=== PATIENT | male | born 1935 | race Caucasian/White ===

== ENCOUNTER 2020-07-18 18:45 | Inpatient (IN) | payer MEDICARE, BC ==
[~2020-07-18] VITALS: Ht 177.8 cm; Wt 97.5 kg
--- NOTE | 2020-07-18 19:01 | NUR ---
Triage done based on Pt's recall, No Hx or Med list received from Board and care/paramedics.
--- NOTE | 2020-07-18 19:12 | NUR ---
Received report from Fidelina MCKEON. Unable to determine pt's board and care and medication list/PMH. Pt alert, oriented to self only, and verbally responsive. Able to verbalize needs but very forgetful.
[2020-07-18 19:44] LABS: BASOPHILS % (AUTO) 0.2 % (0.0-2.0); HEMATOCRIT 25.9 % (36.7-47.1); HEMOGLOBIN 8.4 g/dL (12.5-16.3); LYMPHOCYTES # (AUTO) 2.5 K/uL (20.0-40.0); LYMPHOCYTES % (AUTO) 10.6 % (20.5-51.5); MEAN CORPUSCULAR HEMOGLOBIN 28.7 uug (23.8-33.4); MEAN CORPUSCULAR HGB CONC 32 g/dL (32.5-36.3); MEAN CORPUSCULAR VOLUME 88.9 fL (73.0-96.2); MONOCYTES # (AUTO) 1.5 K/uL (2.0-10.0); MONOCYTES % (AUTO) 6.7 % (0.0-11.0); NEUTROPHILS # (AUTO) 19.2 K/uL (1.8-8.9); NEUTROPHILS % (AUTO) 82.5 % (38.5-71.5); PLATELET COUNT (AUTO) 336 K/uL (152-348); RED BLOOD CELL COUNT(AUTO) 2.92 MIL/uL (4.06-5.63); WHITE BLOOD COUNT (AUTO) 23.2 K/uL (3.6-10.2)
[2020-07-18 20:06] LABS: BILIRUBIN,DIRECT 0.3 mg/dL (0.0-0.2); BILIRUBIN,TOTAL 0.8 mg/dL (0.2-1.0); CREATININE 1.3 mg/dL (0.6-1.3); POTASSIUM 5.2 mmol/L (3.5-5.1)
[2020-07-18] MEDS ORDERED: METOCLOPRAMIDE HCL 10 MG/2 ML VIAL IV ONE (20:15)
[2020-07-18] MEDS ORDERED: PIPERACILLIN SODIUM/TAZOBACTAM 3.375 G in IV DEXTROSE 5% 50 ML IV ONE (20:30)
[2020-07-18] MEDS ORDERED: IV NS 1000 ML 1,000 ML IV ONE ×2 (20:30→21:45)
[2020-07-18] MEDS ORDERED: METRONIDAZOLE 500 MG/NS 100 ML PIGGYBACK IV ONE (20:30)
[2020-07-18] MEDS ORDERED: VANCOMYCIN 1G/D5W 200 ML PIGGYBACK IV ONE (20:30)
[2020-07-18] MEDS ORDERED: METOCLOPRAMIDE HCL 10 MG/2 ML VIAL ONE (20:40)
[2020-07-18] MEDS ORDERED: PIPERACILLIN/TAZOBACTAM/D5W 50 ML IV ONE (20:42)
--- NOTE | 2020-07-18 20:50 | NUR ---
Called for bed. CN will call me back.
[2020-07-18] MEDS ORDERED: CHOL100045 PO (21:11)
[2020-07-18] MEDS ORDERED: PRAZ2CAP2 PO (21:11)
[2020-07-18] MEDS ORDERED: NALO4SPR NS (21:11)
[2020-07-18] MEDS ORDERED: MEMA10TA56 PO (21:11)
[2020-07-18] MEDS ORDERED: LIDO30AD10 TD (21:11)
[2020-07-18] MEDS ORDERED: VIT1CAPS44 PO (21:11)
[2020-07-18] MEDS ORDERED: POLY15DR17 OP (21:11)
[2020-07-18] MEDS ORDERED: DICLOFENAC 1% (21:11)
[2020-07-18] MEDS ORDERED: DONE10TA44 PO (21:11)
[2020-07-18] MEDS ORDERED: ATOR10TA33 PO (21:11)
[2020-07-18] MEDS ORDERED: ONDA4TAB5 PO (21:11)
[2020-07-18] MEDS ORDERED: [UNRECOGNIZED DRUG - OTHER] (21:11)
[2020-07-18] MEDS ORDERED: SENN8.6T22 PO (21:11)
[2020-07-18] MEDS ORDERED: GABA100C PO (21:11)
[2020-07-18] MEDS ORDERED: ACET-2154 PO (21:11)
[2020-07-18] MEDS ORDERED: APIX5TAB PO (21:11)
[2020-07-18] MEDS ORDERED: POLY17PO4 PO (21:11)
[2020-07-18] MEDS ORDERED: FINA5TAB11 PO (21:11)
[2020-07-18] MEDS ORDERED: TRAZ-182 PO (21:11)
[2020-07-18] MEDS ORDERED: DEXA2TAB PO (21:11)
[2020-07-18] MEDS ORDERED: METO-356 PO (21:11)
[2020-07-18] MEDS ORDERED: TIMO5DRO35 OP (21:11)
[2020-07-18] MEDS ORDERED: OXYC5TAB3 PO (21:11)
[2020-07-18] MEDS ORDERED: TRAZODONE 50 MG TABLET PO SCH (21:45)
[2020-07-18] MEDS ORDERED: OXYCODONE HCL 5 MG TABLET PO PRN (21:45)
[2020-07-18] MEDS ORDERED: ACETAMINOPHEN 325 MG TABLET PO PRN (21:45)
[2020-07-18 21:47] LABS: *BILIRUBIN,URIN NEGATIVE (NEGATIVE); *BLOOD, URINE NEGATIVE (NEGATIVE); *CLARITY,URINE CLEAR (CLEAR); *COLOR,URINE AMBER (YELLOW); *KETONES,URINE NEGATIVE (NEGATIVE); *UROBILINOGEN,URINE 0.2 E.U./dl (NORMAL); LEUKOCYTE ESTERASE ,URINE NEGATIVE (NEGATIVE); NITRITE, URINE NEGATIVE (NEGATIVE); UGLUCOSE NEGATIVE (NEGATIVE)
--- NOTE | 2020-07-18 21:50 | NUR ---
Dr. Rose in panel call with Dr. Daly; accepted patient for Tele admission. Belongings list completed. Sepsis reassessment done. IV ATB is running at this time.
[2020-07-18] MEDS ORDERED: MORPHINE SULFATE 2 MG/1 ML DISP.SYRIN IV PRN (22:00)
[2020-07-18] MEDS ORDERED: PIPERACILLIN SODIUM/TAZOBACTAM 3.375 G in IV DEXTROSE 5% 50 ML IV SCH (22:00)
[2020-07-18] MEDS ORDERED: ONDANSETRON 4 MG/2 ML VIAL IV PRN (22:00)
--- NOTE | 2020-07-19 | NUR ---
Gave report to Nilay MCKEON. Patient rolled over. Jethro RN will transport patient to 3rd floor. Pt remains AO x 4. Recent VS stable as recorded. Not in any acute distress. Afebrile. All belongings with patient.
[2020-07-19 01:00] VITALS: BP 134/70
--- NOTE | 2020-07-19 01:00 | NUR ---
Pt was transported by MIKE Morelos via [facility]. Patient came here d/t N/Vx2 and SOBx1 week. Pt denies any acute distress or pain at this time. Denies N/V/abdominal pain. V/S stable on room air. IV on RAC18 is intact. Loomis catheter, draining clear, eduard urine. Pt noted to have redness and abrasion on the left side buttocks, and incision and swelling on the R. leg from a recent surgical procedure. Safety measures in place. Bed low and locked in position. Call light within reach. Will continue with the plan of care.
[2020-07-19 03:35] LABS: BAND % (MANUAL) 4 % (0-10); LYMPHOCYTES % (MANUAL) 10 % (20-40); METAMYELOCYTES % 2 % (0-1); MONOCYTES % (MANUAL) 7 % (2-10); NEUTROPHILS % (MANUAL) 77 % (42-75)
[2020-07-19 04:00] VITALS: BP 132/61
[2020-07-19] MEDS: IV 1/2NS 1000 ML 1,000 ML IV PRN ×2 (04:32→21:27)
[2020-07-19] MEDS ORDERED: PIPERACILLIN SODIUM/TAZOBACTAM 3.375 G in IV DEXTROSE 5% 50 ML IV SCH (06:00)
--- NOTE | 2020-07-19 06:30 | NUR ---
0600 Medication was not yet given, Pharmacy needs to evaluate. Called the pharmacy to follow up and they are currently reviewing it. Will endorse to oncoming nurse.
--- NOTE | 2020-07-19 06:31 | NUR ---
Pt slept intermittently through the night. Pt awake and denies any acute distress or pain at this time. Pt had no episode of N/V/Abd pain on my shift. V/S stable on room air. Afebrile. NSR 70 on tele monitor. IV on RAC 18 is intact with 0.45NS running at 60cc. Loomis intact and draining well. Comfort care and needs attended. Repositioned for comfort. Fall precaution maintained. Safety measures in place. Bed low and locked in position. Call light within reach. Will endorse to the oncoming nurse accordingly.
[2020-07-19] MEDS ORDERED: SWABABLE VALVE TRANSFER SET EA MC ONE (07:22)
[2020-07-19] MEDS ORDERED: IV NORMAL SALINE 250 ML IV ONE (07:22)
[2020-07-19] MEDS ORDERED: IOHEXOL 300MG/ML 100 ML INFUS..BTL ONE (07:22)
--- NOTE | 2020-07-19 07:30 | NUR ---
Received pt. aaox3-4. iv line present and intact, vitals stable will continue with care plan. Addendum: 07/19/20 at 1814 by ELEAZAR BATISTA RN Loomis catheter in place with dark eduard output noted.
[2020-07-19 07:45] LABS: BASOPHILS # (AUTO) 0.1 K/uL (0.0-8.0); EOSINOPHILS % (AUTO) 0.1 % (0.0-7.0); MONOCYTES # (AUTO) 1.9 K/uL (2.0-10.0); NEUTROPHILS # (AUTO) 13.5 K/uL (1.8-8.9)
[2020-07-19 07:46] LABS: BASOPHILS % (AUTO) 0.3 % (0.0-2.0); LYMPHOCYTES # (AUTO) 3.4 K/uL (20.0-40.0); LYMPHOCYTES % (AUTO) 18.1 % (20.5-51.5); MEAN CORPUSCULAR HEMOGLOBIN 29.9 uug (23.8-33.4); MEAN CORPUSCULAR HGB CONC 34 g/dL (32.5-36.3); MEAN CORPUSCULAR VOLUME 88.2 fL (73.0-96.2); MONOCYTES % (AUTO) 9.9 % (0.0-11.0); NEUTROPHILS % (AUTO) 71.6 % (38.5-71.5); PLATELET COUNT (AUTO) 278 K/uL (152-348); WHITE BLOOD COUNT (AUTO) 18.9 K/uL (3.6-10.2)
[2020-07-19 07:50] LABS: HEMATOCRIT 18.9 % (36.7-47.1); HEMOGLOBIN 6.4 g/dL (12.5-16.3); RED BLOOD CELL COUNT(AUTO) 2.14 MIL/uL (4.06-5.63)
[2020-07-19 08:06] LABS: BILIRUBIN,TOTAL 0.9 mg/dL (0.2-1.0); MAGNESIUM 2.2 mg/dL (1.8-2.4); PHOSPHOROUS 3.5 mg/dL (2.5-4.9); POTASSIUM 4.4 mmol/L (3.5-5.1); TOTAL PROTEIN, SERUM 5.1 g/dL (6.4-8.2)
[2020-07-19] MEDS: FINASTERIDE 5 MG TABLET PO SCH (08:33)
[2020-07-19] MEDS: MEMANTINE HCL 10 MG TABLET PO SCH ×2 (08:33→16:46)
[2020-07-19] MEDS: PANTOPRAZOLE SODIUM 40 MG TABLET.DR PO SCH (08:34)
[2020-07-19] MEDS: POLYVINYL ALCOHOL OPHT DROPS 15 ML BOTTLE OP SCH ×2 (08:40→16:53)
[2020-07-19] MEDS: TIMOLOL MALEATE 0.5% OPHT DROP 5 ML BOTTLE OP SCH ×2 (08:40→16:53)
[2020-07-19] MEDS: LIDOCAINE 5% PATCH TD SCH (08:41)
[2020-07-19 08:56] LABS: HEMATOCRIT 19.9 % (36.7-47.1)
[2020-07-19 08:58] LABS: HEMOGLOBIN 6.5 g/dL (12.5-16.3)
[2020-07-19] MEDS ORDERED: DEXAMETHASONE 2 MG TABLET PO SCH (09:00)
[2020-07-19] MEDS: DEXAMETHASONE 1 MG TABLET PO SCH (09:05)
[2020-07-19] MEDS: PIPERACILLIN SODIUM/TAZOBACTAM 3.375 G in IV DEXTROSE 5% 100 ML IV SCH ×2 (09:05→16:47)
[2020-07-19] MEDS ORDERED: diphenhydrAMINE 50 MG CAPSULE PO ONE (11:00)
[2020-07-19] MEDS ORDERED: ACETAMINOPHEN ES 500 MG TABLET PO ONE (11:00)
[2020-07-19 12:00] VITALS: BP 123/46
[2020-07-19] MEDS: SOD FERRIC GLUC COMPLX/SUCROSE 125 MG in IV NORMAL SALINE 100 ML IV SCH (13:54)
[2020-07-19] MEDS ORDERED: VANCOMYCIN IV 1,250 MG in IV DEXTROSE 5% 250 ML IV SCH (14:00)
[2020-07-19 14:19] LABS: LYMPHOCYTES % (MANUAL) 12 % (20-40); MONOCYTES % (MANUAL) 5 % (2-10); NEUTROPHILS % (MANUAL) 83 % (42-75)
[2020-07-19] MEDS ORDERED: Z GUARD REMEDY PASTE 57 GM TUBE TOP PRN (15:30)
[2020-07-19 16:00] VITALS: BP 119/49
--- NOTE | 2020-07-19 18:06 | NUR ---
Attempts to obtain consent for blood transfusion pt. refusing to consent at this time. Attending notified and per recommendation pt's daughter Sanam Ashraf call at and informed of the need for consent at this time she also declined to consent verbalizing "my dad is coherent enough to consent for procedure I'll gladly consent after the gives me a call with an update"'. Attending notified.
--- NOTE | 2020-07-19 19:00 | NUR ---
Pt in bed, awake. No s/s of acute distress noted. V/S stable on room air. NSR 84 on tele monitor. Pt's hemoglobin is 6.5. Will follow up with the daughter's consent for blood transfusion. IV on RFA intact with 0.45NS at 60cc. Loomis is intact and draining cloudy eduard urine. Safety measures in place. Call light within reach. Will continue with the plan of care.
[2020-07-19 20:51] VITALS: BP 104/47
[2020-07-19] MEDS: ATORVASTATIN 10 MG TABLET PO SCH (20:53)
[2020-07-19] MEDS: DONEPEZIL 10 MG TABLET PO SCH (20:53)
[2020-07-19] MEDS: GABAPENTIN 100 MG CAPSULE PO SCH (20:53)
[2020-07-19] MEDS: PRAZOSIN HCL 1 MG CAPSULE PO SCH (20:58)
[2020-07-20] VITALS (18 sets, daily range): BP systolic 95–121; BP diastolic 40–63
--- NOTE | 2020-07-20 01:13 | NUR ---
Pt on blood transfusion. V/S stable. Will continue to monitor
--- NOTE | 2020-07-20 03:55 | NUR ---
Blood transfusion done. Pt tolerated well. V/S WNL.
[2020-07-20] MEDS: PIPERACILLIN SODIUM/TAZOBACTAM 3.375 G in IV DEXTROSE 5% 100 ML IV SCH ×3 (04:02→20:02)
--- NOTE | 2020-07-20 06:42 | NUR ---
Pt slept intermittently through the night. Pt awake and denies any acute distress or pain at this time. V/S stable on room air. Afebrile. NSR 76 on tele monitor. Fall precaution maintained. Loomis intact and draining well. IV intact with 0.45% NS at 60cc. Repositioned for comfort. Safety measures in place. Call light within reach. Will endorse to the oncoming nurse accordingly.
[2020-07-20] MEDS: PANTOPRAZOLE SODIUM 40 MG TABLET.DR PO SCH ×2 (07:14→16:11)
[2020-07-20 07:23] LABS: BASOPHILS % (AUTO) 0.3 % (0.0-2.0); EOSINOPHILS # (AUTO) 0.1 K/uL (0.0-0.7); EOSINOPHILS % (AUTO) 0.7 % (0.0-7.0); LYMPHOCYTES % (AUTO) 23.7 % (20.5-51.5); MEAN CORPUSCULAR HEMOGLOBIN 29.9 uug (23.8-33.4); MEAN CORPUSCULAR HGB CONC 34 g/dL (32.5-36.3); MEAN CORPUSCULAR VOLUME 88.2 fL (73.0-96.2); MONOCYTES # (AUTO) 1.1 K/uL (2.0-10.0); MONOCYTES % (AUTO) 8.6 % (0.0-11.0); NEUTROPHILS # (AUTO) 8.5 K/uL (1.8-8.9); NEUTROPHILS % (AUTO) 66.7 % (38.5-71.5); PLATELET COUNT (AUTO) 232 K/uL (152-348); WHITE BLOOD COUNT (AUTO) 12.7 K/uL (3.6-10.2)
[2020-07-20 07:33] LABS: RED BLOOD CELL COUNT(AUTO) 1.94 MIL/uL (4.06-5.63)
[2020-07-20 07:39] LABS: HEMATOCRIT 17.1 % (36.7-47.1); HEMOGLOBIN 5.8 g/dL (12.5-16.3)
--- NOTE | 2020-07-20 08:00 | NUR ---
received awake alert and oriented, hard of hearing, explained plan of care- verbalized understanding, to get a unit of PRBC, COMPRESSION MOLDING MACHINE SETTER informed earlier of h/h (5.8)/ (17.1) with orders, still no BM for OB, tele SR/SB with paced beats, safety measures maintained, call light within reach
[2020-07-20 08:09] LABS: CREATININE 0.9 mg/dL (0.6-1.3); POTASSIUM 4.1 mmol/L (3.5-5.1); VANCOMYCIN,TROUGH 6.2 ug/mL (12.0-20.0)
[2020-07-20] MEDS: DEXAMETHASONE 1 MG TABLET PO SCH (08:41)
[2020-07-20] MEDS: VANCOMYCIN IV 1,500 MG in IV DEXTROSE 5% 500 ML IV SCH (08:41)
[2020-07-20] MEDS: TIMOLOL MALEATE 0.5% OPHT DROP 5 ML BOTTLE OP SCH ×2 (08:42→16:14)
[2020-07-20] MEDS: POLYVINYL ALCOHOL OPHT DROPS 15 ML BOTTLE OP SCH ×2 (08:43→16:11)
[2020-07-20] MEDS: FINASTERIDE 5 MG TABLET PO SCH (08:43)
[2020-07-20] MEDS: MEMANTINE HCL 10 MG TABLET PO SCH ×2 (08:43→16:11)
[2020-07-20] MEDS: LIDOCAINE 5% PATCH TD SCH (08:43)
--- NOTE | 2020-07-20 12:07 | NUR ---
unit of PRBC started- vs stable- will monitor for s/s of blood transfusion reaction
--- NOTE | 2020-07-20 12:55 | NUR ---
blood transfusion infusing well without any reactions. no rashes, vs stable
--- NOTE | 2020-07-20 13:00 | NUR ---
Received report from Johnny MCKEON.
[2020-07-20] MEDS: SOD FERRIC GLUC COMPLX/SUCROSE 125 MG in IV NORMAL SALINE 100 ML IV SCH (15:13)
--- NOTE | 2020-07-20 15:20 | NUR ---
Blood transfusion completed, No ASE noted. Afebrile. No Nausea/vomiting Noted.
[2020-07-20 16:53] LABS: HEMOGLOBIN 7.3 g/dL (12.5-16.3)
--- NOTE | 2020-07-20 17:00 | NUR ---
Hgb of 7.3, Ronak FEDERAL APPELLATE LAW CLERK made aware.
--- NOTE | 2020-07-20 17:24 | NUR ---
Called Dr. Torres's Office for physicians consult, Re: Right thigh hematoma, spoke with Samantha, awaiting for call back.
--- NOTE | 2020-07-20 18:11 | NUR ---
Patient in bed, awake, alert and verbally responsive. Able to make needs known. No signs of distress noted. No SOB. No complain of Pain or discomfort. 1 PRBC given as ordered for hgb of 5.8. No ASE noted. Afebrile. current hgb of 7.3, PROJECT ANALYST Ronak made aware. Called Dr. Torres's Office of Consult, re: Right thigh hematoma, awaiting for call back. kept clean and comfortable. Will endorse to Oncoming Nurse.
[2020-07-20] MEDS: GABAPENTIN 100 MG CAPSULE PO SCH (20:02)
[2020-07-20] MEDS: DONEPEZIL 10 MG TABLET PO SCH (20:02)
[2020-07-20] MEDS: ATORVASTATIN 10 MG TABLET PO SCH (20:02)
[2020-07-20] MEDS: PRAZOSIN HCL 1 MG CAPSULE PO SCH (20:07)
[2020-07-21 00:42] VITALS: BP 100/53
[2020-07-21] MEDS: VANCOMYCIN IV 1,500 MG in IV DEXTROSE 5% 500 ML IV SCH ×2 (02:05→21:43)
[2020-07-21] MEDS: PIPERACILLIN SODIUM/TAZOBACTAM 3.375 G in IV DEXTROSE 5% 100 ML IV SCH ×3 (03:59→20:28)
[2020-07-21] MEDS: IV 1/2NS 1000 ML 1,000 ML IV PRN (04:02)
[2020-07-21 05:27] VITALS: BP 118/53
[2020-07-21] MEDS: PANTOPRAZOLE SODIUM 40 MG TABLET.DR PO SCH ×2 (06:18→17:13)
[2020-07-21] MEDS ORDERED: TRAZODONE 50 MG TABLET PO PRN (06:30)
--- NOTE | 2020-07-21 06:52 | NUR ---
Pt rested well in between care; assisted with hygiene needs; repositioned for comfort; applied mepilex to sacrum; air mattress in place; continue to monitor; continue plan of care.
[2020-07-21 07:02] LABS: BILIRUBIN,TOTAL 1.4 mg/dL (0.2-1.0); CREATININE 0.9 mg/dL (0.6-1.3); POTASSIUM 3.8 mmol/L (3.5-5.1); TOTAL PROTEIN, SERUM 5.1 g/dL (6.4-8.2)
[2020-07-21 07:19] LABS: BASOPHILS # (AUTO) 0.1 K/uL (0.0-8.0); BASOPHILS % (AUTO) 0.9 % (0.0-2.0); EOSINOPHILS # (AUTO) 0.1 K/uL (0.0-0.7); EOSINOPHILS % (AUTO) 0.9 % (0.0-7.0); HEMATOCRIT 23.5 % (36.7-47.1); HEMOGLOBIN 7.8 g/dL (12.5-16.3); LYMPHOCYTES % (AUTO) 19.9 % (20.5-51.5); MEAN CORPUSCULAR HEMOGLOBIN 30.2 uug (23.8-33.4); MEAN CORPUSCULAR HGB CONC 33 g/dL (32.5-36.3); MEAN CORPUSCULAR VOLUME 90.6 fL (73.0-96.2); MONOCYTES # (AUTO) 1.3 K/uL (2.0-10.0); MONOCYTES % (AUTO) 8.4 % (0.0-11.0); NEUTROPHILS # (AUTO) 10.6 K/uL (1.8-8.9); NEUTROPHILS % (AUTO) 69.9 % (38.5-71.5); PLATELET COUNT (AUTO) 222 K/uL (152-348); RED BLOOD CELL COUNT(AUTO) 2.59 MIL/uL (4.06-5.63); WHITE BLOOD COUNT (AUTO) 15.2 K/uL (3.6-10.2)
--- NOTE | 2020-07-21 07:30 | NUR ---
Received patient resting in bed. No distress noted at this time. Patient denies any pain at this time. Patient has difficulty hearing . He has a hematoma on the right left which is swollen, also he is on a air mattress to help prevent pressure injury. right buttock and sacral redness can be noted, will remove and cover with new mepilex. Two IV access right forearm and right AC 20 gauge, with the former running 1/2 NS at 60 mls/hr and the latter running abx. Safety precautions in place with bed in the lowest position and locked with call light and belongings within reach. Will continue to monitor.
[2020-07-21] MEDS: MEMANTINE HCL 10 MG TABLET PO SCH ×2 (09:15→17:13)
[2020-07-21] MEDS: FINASTERIDE 5 MG TABLET PO SCH (09:16)
[2020-07-21] MEDS: DEXAMETHASONE 1 MG TABLET PO SCH (09:16)
[2020-07-21] MEDS: TIMOLOL MALEATE 0.5% OPHT DROP 5 ML BOTTLE EACHEYE SCH ×2 (09:18→17:14)
[2020-07-21] MEDS: POLYVINYL ALCOHOL OPHT DROPS 15 ML BOTTLE EACHEYE SCH ×2 (09:18→17:14)
[2020-07-21] MEDS: LIDOCAINE 5% PATCH TD SCH ×2 (09:22→09:23)
[2020-07-21 11:22] VITALS: BP 99/43
--- NOTE | 2020-07-21 12:50 | NUR ---
Dr Torres in the room with the patient.
[2020-07-21 13:26] LABS: *OCCULT BLOOD STOOL NEGATIVE (NEGATIVE)
[2020-07-21] MEDS: SOD FERRIC GLUC COMPLX/SUCROSE 125 MG in IV NORMAL SALINE 100 ML IV SCH (14:06)
[2020-07-21 15:02] VITALS: BP 104/53
[2020-07-21 18:16] LABS: BAND % (MANUAL) 2 % (0-10); LYMPHOCYTES % (MANUAL) 32 % (20-40); MONOCYTES % (MANUAL) 9 % (2-10); NEUTROPHILS % (MANUAL) 57 % (42-75)
--- NOTE | 2020-07-21 18:56 | NUR ---
Informed consent is signed and in the patients chart for the incision and drainage of the right thigh hematoma. Procedure is schedules to be done on Wednesday the . Patient will be NPO after midnight. Will endorse to oncoming nurse.
--- NOTE | 2020-07-21 20:00 | NUR ---
Received patient in bed, alert and able to make needs known.No s/s of distress noted.Iv site in place on Right AC and Rt forearm 20 g.ABT IV given for sepsis .NO a/r noted.Compliant with medications.Call light with in reach.Will continue to monitor.
[2020-07-21] MEDS: DONEPEZIL 10 MG TABLET PO SCH (20:30)
[2020-07-21] MEDS: ATORVASTATIN 10 MG TABLET PO SCH (20:30)
[2020-07-21] MEDS: PRAZOSIN HCL 1 MG CAPSULE PO SCH (20:33)
[2020-07-21] MEDS: GABAPENTIN 100 MG CAPSULE PO SCH (20:33)
[2020-07-21 20:59] VITALS: BP 113/58
[2020-07-22] MEDS: IV 1/2NS 1000 ML 1,000 ML IV PRN (02:02)
[2020-07-22] MEDS: PIPERACILLIN SODIUM/TAZOBACTAM 3.375 G in IV DEXTROSE 5% 100 ML IV SCH ×3 (03:21→20:15)
[2020-07-22 05:49] VITALS: BP 144/60
--- NOTE | 2020-07-22 06:21 | NUR ---
Patient slept well .No s/s of distress .Denies pain. NPO after midnight.IV site remain intact.No s/s of infiltration.F/c draining well.Call light with in reach.Will endorse to oncoming shift.
[2020-07-22] MEDS: PANTOPRAZOLE SODIUM 40 MG TABLET.DR PO SCH ×2 (06:32→17:10)
[2020-07-22 07:11] LABS: BASOPHILS % (AUTO) 0.4 % (0.0-2.0); EOSINOPHILS # (AUTO) 0.2 K/uL (0.0-0.7); EOSINOPHILS % (AUTO) 1.5 % (0.0-7.0); HEMATOCRIT 24.5 % (36.7-47.1); HEMOGLOBIN 8.2 g/dL (12.5-16.3); LYMPHOCYTES # (AUTO) 2.8 K/uL (20.0-40.0); MEAN CORPUSCULAR HEMOGLOBIN 30.5 uug (23.8-33.4); MEAN CORPUSCULAR HGB CONC 33 g/dL (32.5-36.3); MEAN CORPUSCULAR VOLUME 91.3 fL (73.0-96.2); MONOCYTES # (AUTO) 0.9 K/uL (2.0-10.0); MONOCYTES % (AUTO) 7.7 % (0.0-11.0); NEUTROPHILS # (AUTO) 8.1 K/uL (1.8-8.9); NEUTROPHILS % (AUTO) 67.4 % (38.5-71.5); PLATELET COUNT (AUTO) 263 K/uL (152-348); RED BLOOD CELL COUNT(AUTO) 2.68 MIL/uL (4.06-5.63)
[2020-07-22 07:32] LABS: POTASSIUM 4.1 mmol/L (3.5-5.1)
[2020-07-22 08:00] VITALS: BP 113/54
[2020-07-22] MEDS: DEXAMETHASONE 1 MG TABLET PO SCH ×2 (09:00→09:46)
[2020-07-22] MEDS: TIMOLOL MALEATE 0.5% OPHT DROP 5 ML BOTTLE EACHEYE SCH ×3 (09:00→17:10)
[2020-07-22] MEDS: MEMANTINE HCL 10 MG TABLET PO SCH ×3 (09:00→17:10)
[2020-07-22] MEDS: POLYVINYL ALCOHOL OPHT DROPS 15 ML BOTTLE EACHEYE SCH ×3 (09:00→17:10)
[2020-07-22] MEDS: FINASTERIDE 5 MG TABLET PO SCH ×2 (09:00→09:47)
--- NOTE | 2020-07-22 09:07 | NUR ---
Talked to Bishnu Oquendo SCREEN PRINTING CLOTH SPREADER and held AM meds d/t pt NPO after midnight for possible I&D of right thigh
--- NOTE | 2020-07-22 09:22 | NUR ---
Dr. Torres called, informed that I&D will be done tomorrow morning. NPO after MN
[2020-07-22] MEDS: LIDOCAINE 5% PATCH TD SCH ×2 (09:47)
[2020-07-22 11:43] VITALS: BP 123/55
[2020-07-22] MEDS: SOD FERRIC GLUC COMPLX/SUCROSE 125 MG in IV NORMAL SALINE 100 ML IV SCH (13:51)
[2020-07-22] MEDS: VANCOMYCIN IV 1,500 MG in IV DEXTROSE 5% 500 ML IV SCH (15:45)
[2020-07-22 16:00] VITALS: BP 116/51
--- NOTE | 2020-07-22 18:27 | NUR ---
Pt stable throughout shift, AOx4 but forgetful. On RA denied SOB or distress at this time. Denied any chest pain. IV on right FA 20g flushed and patent. On air mattress. Spoke with daughter Sanam for I&D consent for tomorrow, cosigned with Maru EMMANUEL. Dr. Wells ordered for wound culture, will endorse to next shift. Loomis catheter in place draining clear yellow urine. No other complaints at this time. Bed locked in lowest position with siderails 2x up. Call light and phone within reach.
--- NOTE | 2020-07-22 20:00 | NUR ---
Patient in bed awake .HOB elevated.No respiratory distress noted.Continue on ATB therapy for sepsis.No A/r noted.Patient made aware of NPO after midnight.Verbalized understanding .Call light with in reach .Will continue to monitor.
[2020-07-22] MEDS: ATORVASTATIN 10 MG TABLET PO SCH (20:19)
[2020-07-22] MEDS: DONEPEZIL 10 MG TABLET PO SCH (20:19)
[2020-07-22] MEDS: GABAPENTIN 100 MG CAPSULE PO SCH (20:19)
[2020-07-22] MEDS: PRAZOSIN HCL 1 MG CAPSULE PO SCH (20:20)
[2020-07-22 20:27] VITALS: BP 111/57
[2020-07-23] MEDS: PIPERACILLIN SODIUM/TAZOBACTAM 3.375 G in IV DEXTROSE 5% 100 ML IV SCH ×3 (03:10→23:25)
[2020-07-23 05:46] VITALS: BP 128/64
--- NOTE | 2020-07-23 06:15 | NUR ---
Patient awake alert and able to make needs known.No s/s of distress noted.Continue on NPO .Rt leg and leg warm to touch .Denies pain.F/C fr [address] draining well with clear urine output ,no sediments.Left buttock redness.Provided wound care.Pt tolerated well.all needs anticipated and met accordingly.Will endorse to oncoming shift.
[2020-07-23] MEDS: PANTOPRAZOLE SODIUM 40 MG TABLET.DR PO SCH ×2 (06:25→16:58)
[2020-07-23 06:43] LABS: BASOPHILS % (AUTO) 0.3 % (0.0-2.0); EOSINOPHILS # (AUTO) 0.2 K/uL (0.0-0.7); EOSINOPHILS % (AUTO) 1.5 % (0.0-7.0); HEMATOCRIT 25.3 % (36.7-47.1); HEMOGLOBIN 8.5 g/dL (12.5-16.3); LYMPHOCYTES # (AUTO) 2.8 K/uL (20.0-40.0); LYMPHOCYTES % (AUTO) 20.1 % (20.5-51.5); MEAN CORPUSCULAR HEMOGLOBIN 30.8 uug (23.8-33.4); MEAN CORPUSCULAR HGB CONC 34 g/dL (32.5-36.3); MEAN CORPUSCULAR VOLUME 91.7 fL (73.0-96.2); MONOCYTES # (AUTO) 1.2 K/uL (2.0-10.0); MONOCYTES % (AUTO) 8.9 % (0.0-11.0); NEUTROPHILS # (AUTO) 9.7 K/uL (1.8-8.9); NEUTROPHILS % (AUTO) 69.2 % (38.5-71.5); PLATELET COUNT (AUTO) 267 K/uL (152-348); RED BLOOD CELL COUNT(AUTO) 2.76 MIL/uL (4.06-5.63)
[2020-07-23 06:45] LABS: CREATININE 0.9 mg/dL (0.6-1.3); POTASSIUM 3.8 mmol/L (3.5-5.1)
[2020-07-23] MEDS: POLYVINYL ALCOHOL OPHT DROPS 15 ML BOTTLE EACHEYE SCH ×2 (08:47→16:53)
[2020-07-23] MEDS: TIMOLOL MALEATE 0.5% OPHT DROP 5 ML BOTTLE EACHEYE SCH ×2 (08:48→16:54)
[2020-07-23] MEDS: LIDOCAINE 5% PATCH TD SCH ×2 (08:48)
[2020-07-23] MEDS: DEXAMETHASONE 1 MG TABLET PO SCH (09:00)
[2020-07-23] MEDS: MEMANTINE HCL 10 MG TABLET PO SCH ×2 (09:00→16:54)
[2020-07-23] MEDS: FINASTERIDE 5 MG TABLET PO SCH (09:00)
[2020-07-23] MEDS: VANCOMYCIN IV 1,500 MG in IV DEXTROSE 5% 500 ML IV SCH (11:38)
[2020-07-23 11:55] VITALS: BP 121/67
--- NOTE | 2020-07-23 12:50 | NUR ---
PATIENT TRANSPORTED BY OR STAFF FOR SCHEDULED PROCEDURE. ENDORSED WOUND CULTURE SWAB. PATIENT AWAKE, ALERT AND ORIENTED X 3-4, BUT FORGETFUL. ON RA, SATURATION WNL. IV ON R FA 20G - 0.45NS INFUSING PER MD ORDER. IV FLUSHING AND PATENT. NICHOLS CATHETER PATENT. EMPTIED CATHETER BAG - 350CC, YELLOW, NO ODOR. NO S/S OF SOB AND DISTRESS. NO COMPLAINTS OF PAIN AT THIS TIME.
[2020-07-23] MEDS ORDERED: FENTANYL CITRATE 100 MCG/2 ML AMPUL ONE (13:14)
[2020-07-23] MEDS ORDERED: POLYMYXIN B SULFATE 500,000 UNITS, BACITRACIN 50,000 UNITS, NORMAL SALINE 20 ML MC ONE ×3 (13:15)
[2020-07-23] MEDS ORDERED: DEXAMETHASONE SOD PHOSPHATE 4 MG INJ IV ONE (13:33)
[2020-07-23] MEDS ORDERED: PROPOFOL 200 MG/20 ML BOTTLE IV ONE (13:33)
[2020-07-23] MEDS ORDERED: SEVOFLURANE 250 ML BOTTLE IH ONE (13:33)
[2020-07-23] MEDS ORDERED: ONDANSETRON 4 MG/2 ML VIAL IV ONE (13:33)
[2020-07-23] MEDS ORDERED: IV NORMAL SALINE 1000 ML BAG IV ONE (13:33)
[2020-07-23] MEDS ORDERED: ETOMIDATE 20 MG/10 ML VIAL IV ONE (13:33)
[2020-07-23] MEDS ORDERED: GLYCOPYRROLATE 0.2 MG/ML VIAL IJ ONE (13:33)
[2020-07-23] MEDS ORDERED: NEOSTIGMINE METHYLSULFATE 10 MG/10 ML VIAL IM ONE (13:33)
[2020-07-23] MEDS ORDERED: MORPHINE SULFATE 4 MG/1 ML DISP.SYRIN IV PRN (14:30)
[2020-07-23] MEDS ORDERED: HYDROCODONE/APAP 10-325 MG TABLET PO PRN (14:30)
--- NOTE | 2020-07-23 14:40 | NUR ---
PATIENT RETURNED FROM PROCEDURE. AWAKE, ALERT AND ORIENTED. ON 2L NC, SATURATION WNL. VS WNL. PEDAL PULSE 2+, ABLE TO MOVE TOES AND FEEL SENSATION B/L. NO COMPLAINTS OF PAIN AT THIS TIME. WILL CONTINUE TO MONITOR.
[2020-07-23] MEDS: POTASSIUM CHLORIDE 20 MEQ in IV D5 1/2 NS 1000 ML 1,000 ML IV PRN (15:28)
[2020-07-23 16:00] VITALS: BP 110/60
[2020-07-23] MEDS: SOD FERRIC GLUC COMPLX/SUCROSE 125 MG in IV NORMAL SALINE 100 ML IV SCH (16:07)
--- NOTE | 2020-07-23 18:28 | NUR ---
PATIENT AWAKE, ALERT AND ORIENTED X 4. EDUCATED PATIENT ON PROPER USE OF IS. ENCOURAGED USE OF IS AT BEDSIDE 10X Q1HRWA. NO S/S OF DISTRESS OR SOB. DRESSING INTACT, NO S/S OF BLEEDING. DENIES PAIN AT THIS TIME. DENIES N/V.
--- NOTE | 2020-07-23 19:00 | NUR ---
Pt in bed, awake, watching TV. Denies any acute distress or pain at this time. S/P I&D on the R. Leg. Dressing is dry, intact with no s/s of bleeding noted. V/S stable on 2L NC. Loomis intact and draining clear eduard urine. R. Hand IV is intact with D5 1/2 NS with 20 meq KCL running at 25cc. Safety measures in place. Bed low and locked in position. Call light within reach. Will continue with the plan of care.
[2020-07-23 20:16] VITALS: BP 127/53
[2020-07-23] MEDS: DONEPEZIL 10 MG TABLET PO SCH (20:40)
[2020-07-23] MEDS: GABAPENTIN 100 MG CAPSULE PO SCH (20:40)
[2020-07-23] MEDS: ATORVASTATIN 10 MG TABLET PO SCH (20:40)
[2020-07-23] MEDS: PRAZOSIN HCL 1 MG CAPSULE PO SCH (20:41)
[2020-07-24] MEDS: VANCOMYCIN IV 1,500 MG in IV DEXTROSE 5% 500 ML IV SCH ×2 (03:28→20:49)
[2020-07-24 06:03] LABS: BASOPHILS % (AUTO) 0.4 % (0.0-2.0); EOSINOPHILS # (AUTO) 0.3 K/uL (0.0-0.7); EOSINOPHILS % (AUTO) 2.7 % (0.0-7.0); HEMATOCRIT 25.6 % (36.7-47.1); HEMOGLOBIN 8.7 g/dL (12.5-16.3); MEAN CORPUSCULAR HEMOGLOBIN 31.2 uug (23.8-33.4); MEAN CORPUSCULAR HGB CONC 34 g/dL (32.5-36.3); MEAN CORPUSCULAR VOLUME 92.1 fL (73.0-96.2); MONOCYTES # (AUTO) 1.1 K/uL (2.0-10.0); MONOCYTES % (AUTO) 9.6 % (0.0-11.0); NEUTROPHILS # (AUTO) 7.8 K/uL (1.8-8.9); NEUTROPHILS % (AUTO) 69.3 % (38.5-71.5); PLATELET COUNT (AUTO) 267 K/uL (152-348); RED BLOOD CELL COUNT(AUTO) 2.77 MIL/uL (4.06-5.63); WHITE BLOOD COUNT (AUTO) 11.3 K/uL (3.6-10.2)
[2020-07-24] MEDS: PANTOPRAZOLE SODIUM 40 MG TABLET.DR PO SCH ×2 (06:07→16:26)
[2020-07-24 06:18] LABS: MAGNESIUM 2.1 mg/dL (1.8-2.4); PHOSPHOROUS 3.6 mg/dL (2.5-4.9); POTASSIUM 4.1 mmol/L (3.5-5.1)
[2020-07-24 06:20] VITALS: BP 125/77
--- NOTE | 2020-07-24 06:28 | NUR ---
Pt slept through the night. No s/s of acute distress or pain at this time. V/S stable on 2L NC. Dressing on the R. Leg remains dry, intact and no s/s of bleeding noted. Loomis is intact and draining well. Comfort care and needs attended. Incontinence care provided. Repositioned for comfort. Fall and aspiration precaution maintained. Safety measures in place. Call light within reach. Will endorse to the oncoming nurse accordingly.
[2020-07-24 06:50] LABS: BAND % (MANUAL) 1 % (0-10); EOSINOPHILS % (MANUAL) 6 % (0-8); LYMPHOCYTES % (MANUAL) 16 % (20-40); METAMYELOCYTES % 5 % (0-1); MONOCYTES % (MANUAL) 1 % (2-10); MYELOCYTES % 4 % (0-0); NEUTROPHILS % (MANUAL) 62 % (42-75)
--- NOTE | 2020-07-24 07:30 | NUR ---
Receive pt. aaox3. vitals stable no c/of pain.
[2020-07-24 08:00] VITALS: BP 128/77
[2020-07-24] MEDS: LIDOCAINE 5% PATCH TD SCH ×2 (09:00→09:19)
[2020-07-24] MEDS: PIPERACILLIN SODIUM/TAZOBACTAM 3.375 G in IV DEXTROSE 5% 100 ML IV SCH ×3 (09:17→23:59)
[2020-07-24] MEDS: POLYVINYL ALCOHOL OPHT DROPS 15 ML BOTTLE EACHEYE SCH ×2 (09:18→16:26)
[2020-07-24] MEDS: FINASTERIDE 5 MG TABLET PO SCH (09:18)
[2020-07-24] MEDS: TIMOLOL MALEATE 0.5% OPHT DROP 5 ML BOTTLE EACHEYE SCH ×2 (09:18→16:26)
[2020-07-24] MEDS: DEXAMETHASONE 1 MG TABLET PO SCH (09:18)
[2020-07-24] MEDS: MEMANTINE HCL 10 MG TABLET PO SCH ×2 (09:18→16:26)
--- NOTE | 2020-07-24 10:51 | NUR ---
pt. working with pt. barely tolerating.
[2020-07-24 11:51] VITALS: BP 119/51
--- NOTE | 2020-07-24 12:02 | NUR ---
WOUND CARE CONSULT: PT PRESENTS WITH INTACT DEEP TISSUE INJURY TO SACRUM AND AREA OF SKIN IRRITATION (INCONTINENCE ASSOCIATED) TO LEFT BUTTOCK, PRESENT ON ADMISSION. RECOMMENDATIONS MADE FOR SKIN PROTECTION. DISCUSSED WITH NURSING STAFF. PT IS ON FIRST STEP KYA LOW AIR LOSS MATTRESS. MOYA IN AGREEMENT WITH PLAN OF CARE. Addendum: 07/24/20 at 1204 by MADHAV SIERRA RN Amended: Links added.
[2020-07-24] MEDS: SOD FERRIC GLUC COMPLX/SUCROSE 125 MG in IV NORMAL SALINE 100 ML IV SCH (13:52)
[2020-07-24 15:44] VITALS: BP 122/54
--- NOTE | 2020-07-24 16:00 | NUR ---
Attending Jaden. notified that pts daughter Sanam Ashraf is refusing to give consent for needed picc line stating "no . has call me to update me on care plan for the last 5 days, Ill consent and agree when they call me to informed me about my dad's care plan." Attending called to be notified.
[2020-07-24] MEDS: PROTEIN SUPPLEMENT (PROSTAT) 30 ML LIQUID PO SCH (16:26)
[2020-07-24] MEDS: POTASSIUM CHLORIDE 20 MEQ in IV D5 1/2 NS 1000 ML 1,000 ML IV PRN (17:26)
--- NOTE | 2020-07-24 20:00 | NUR ---
Received patient lying in bed. AAOx3. No s/s of acute distress noted at this time. Pt on 2L NC. VS WNL. Patient denies SOB and pain. Loomis intact and draining. Dressing right leg dry and intact. Right hand IV patent and intact. Bed locked and low. Safety measures in place and will continue to monitor.
[2020-07-24 20:09] VITALS: BP 121/52
[2020-07-24] MEDS: GABAPENTIN 100 MG CAPSULE PO SCH (20:50)
[2020-07-24] MEDS: DONEPEZIL 10 MG TABLET PO SCH (20:50)
[2020-07-24] MEDS: ATORVASTATIN 10 MG TABLET PO SCH (20:50)
[2020-07-24] MEDS: PRAZOSIN HCL 1 MG CAPSULE PO SCH (20:55)
[2020-07-25 04:09] VITALS: BP 128/65
[2020-07-25] MEDS: POTASSIUM CHLORIDE 20 MEQ in IV D5 1/2 NS 1000 ML 1,000 ML IV PRN ×2 (06:00→23:58)
[2020-07-25] MEDS: PANTOPRAZOLE SODIUM 40 MG TABLET.DR PO SCH ×2 (06:04→16:22)
[2020-07-25 06:15] LABS: BASOPHILS # (AUTO) 0.1 K/uL (0.0-8.0); EOSINOPHILS # (AUTO) 0.3 K/uL (0.0-0.7); EOSINOPHILS % (AUTO) 2.2 % (0.0-7.0); HEMATOCRIT 28.1 % (36.7-47.1); HEMOGLOBIN 9.5 g/dL (12.5-16.3); LYMPHOCYTES # (AUTO) 2.6 K/uL (20.0-40.0); LYMPHOCYTES % (AUTO) 18.2 % (20.5-51.5); MEAN CORPUSCULAR HEMOGLOBIN 31.1 uug (23.8-33.4); MEAN CORPUSCULAR HGB CONC 34 g/dL (32.5-36.3); MEAN CORPUSCULAR VOLUME 91.8 fL (73.0-96.2); MONOCYTES # (AUTO) 1.3 K/uL (2.0-10.0); MONOCYTES % (AUTO) 8.9 % (0.0-11.0); NEUTROPHILS # (AUTO) 10.1 K/uL (1.8-8.9); NEUTROPHILS % (AUTO) 69.7 % (38.5-71.5); PLATELET COUNT (AUTO) 269 K/uL (152-348); RED BLOOD CELL COUNT(AUTO) 3.06 MIL/uL (4.06-5.63); WHITE BLOOD COUNT (AUTO) 14.5 K/uL (3.6-10.2)
--- NOTE | 2020-07-25 06:25 | NUR ---
Patient slept well through the night. No s/s of acute distress noted. Pt on RA and saturating well between 95-97%, using the O2 NC on and off stating "it hurts my nose". Pt denies SOB. Loomis intact and draining via gravity. Right hand swollen, removed IV and elevated extremity. Left IV 22G in place patent and intact. All needs were meet and safety precautions remained intact. will endorse to oncoming shift. Addendum: 07/25/20 at 0652 by SARAH ALEXANDRE RN Pt refused to turn q2 hrs to offload sacrum. Air mattress in place
[2020-07-25 06:39] LABS: CREATININE 0.9 mg/dL (0.6-1.3); MAGNESIUM 2.4 mg/dL (1.8-2.4); PHOSPHOROUS 3.2 mg/dL (2.5-4.9); POTASSIUM 3.9 mmol/L (3.5-5.1)
--- NOTE | 2020-07-25 07:10 | NUR ---
RECEIVED PT IN BED AWAKE,CALL LIGHT WITH IN REACH NO C/O PAIN NOTED
[2020-07-25] MEDS: PIPERACILLIN SODIUM/TAZOBACTAM 3.375 G in IV DEXTROSE 5% 100 ML IV SCH ×3 (08:10→23:58)
[2020-07-25] MEDS: MEMANTINE HCL 10 MG TABLET PO SCH ×2 (08:11→16:22)
[2020-07-25] MEDS: FINASTERIDE 5 MG TABLET PO SCH (08:11)
[2020-07-25] MEDS: LIDOCAINE 5% PATCH TD SCH ×2 (08:11)
[2020-07-25] MEDS: PROTEIN SUPPLEMENT (PROSTAT) 30 ML LIQUID PO SCH ×2 (08:11→16:22)
[2020-07-25] MEDS: POLYVINYL ALCOHOL OPHT DROPS 15 ML BOTTLE EACHEYE SCH ×2 (08:12→16:22)
[2020-07-25] MEDS: TIMOLOL MALEATE 0.5% OPHT DROP 5 ML BOTTLE EACHEYE SCH ×2 (08:12→16:23)
[2020-07-25] MEDS: DEXAMETHASONE 1 MG TABLET PO SCH (08:17)
[2020-07-25 11:38] VITALS: BP 102/40
[2020-07-25] MEDS: VANCOMYCIN IV 1,500 MG in IV DEXTROSE 5% 500 ML IV SCH (15:25)
[2020-07-25 16:00] VITALS: BP 114/58
--- NOTE | 2020-07-25 19:00 | NUR ---
Pt in bed, watching TV. Denies any acute distress or pain at this time. V/S stable on room air saturating at 96%. Loomis intact, draining well. L hand IV 22G intact with D5 1/2 NS 20meqs KCL running at 75cc. Dressing on the R. leg dry and intact. Safety measures in place. Call light within reach. Will continue with the plan of care.
[2020-07-25 20:00] VITALS: BP 124/58
[2020-07-25] MEDS: GABAPENTIN 100 MG CAPSULE PO SCH (21:06)
[2020-07-25] MEDS: ATORVASTATIN 10 MG TABLET PO SCH (21:06)
[2020-07-25] MEDS: DONEPEZIL 10 MG TABLET PO SCH (21:06)
[2020-07-25] MEDS: PRAZOSIN HCL 1 MG CAPSULE PO SCH (21:13)
[2020-07-26 04:00] VITALS: BP 121/55
[2020-07-26 06:16] LABS: BASOPHILS # (AUTO) 0.1 K/uL (0.0-8.0); BASOPHILS % (AUTO) 0.6 % (0.0-2.0); EOSINOPHILS # (AUTO) 0.3 K/uL (0.0-0.7); EOSINOPHILS % (AUTO) 2.1 % (0.0-7.0); HEMATOCRIT 25.8 % (36.7-47.1); HEMOGLOBIN 8.6 g/dL (12.5-16.3); LYMPHOCYTES # (AUTO) 2.5 K/uL (20.0-40.0); MEAN CORPUSCULAR HEMOGLOBIN 30.7 uug (23.8-33.4); MEAN CORPUSCULAR HGB CONC 34 g/dL (32.5-36.3); MEAN CORPUSCULAR VOLUME 91.7 fL (73.0-96.2); MONOCYTES # (AUTO) 1.2 K/uL (2.0-10.0); MONOCYTES % (AUTO) 8.6 % (0.0-11.0); NEUTROPHILS # (AUTO) 9.3 K/uL (1.8-8.9); NEUTROPHILS % (AUTO) 69.7 % (38.5-71.5); PLATELET COUNT (AUTO) 288 K/uL (152-348); RED BLOOD CELL COUNT(AUTO) 2.82 MIL/uL (4.06-5.63); WHITE BLOOD COUNT (AUTO) 13.4 K/uL (3.6-10.2)
[2020-07-26] MEDS: PANTOPRAZOLE SODIUM 40 MG TABLET.DR PO SCH (06:23)
[2020-07-26 06:34] LABS: CREATININE 0.8 mg/dL (0.6-1.3); MAGNESIUM 2.3 mg/dL (1.8-2.4); PHOSPHOROUS 2.8 mg/dL (2.5-4.9); POTASSIUM 4.4 mmol/L (3.5-5.1)
--- NOTE | 2020-07-26 06:40 | NUR ---
Pt slept through the night. No s/s of acute distress noted at this time. V/S stable on room air. Wound care provided. Comfort care and needs attended. Repositioned for comfort. Safety measures in place. Call light within reach. Will endorse to oncoming nurse.
[2020-07-26] MEDS: PIPERACILLIN SODIUM/TAZOBACTAM 3.375 G in IV DEXTROSE 5% 100 ML IV SCH (07:32)
[2020-07-26] MEDS: LIDOCAINE 5% PATCH TD SCH ×2 (07:46→07:47)
[2020-07-26] MEDS: POLYVINYL ALCOHOL OPHT DROPS 15 ML BOTTLE EACHEYE SCH (07:46)
[2020-07-26] MEDS: TIMOLOL MALEATE 0.5% OPHT DROP 5 ML BOTTLE EACHEYE SCH (07:46)
[2020-07-26] MEDS: FINASTERIDE 5 MG TABLET PO SCH (07:47)
[2020-07-26] MEDS: PROTEIN SUPPLEMENT (PROSTAT) 30 ML LIQUID PO SCH (07:47)
[2020-07-26] MEDS: MEMANTINE HCL 10 MG TABLET PO SCH (07:47)
[2020-07-26] MEDS: DEXAMETHASONE 1 MG TABLET PO SCH (07:48)
[2020-07-26 08:31] VITALS: BP 115/59
[2020-07-26] MEDS: VANCOMYCIN IV 1,500 MG in IV DEXTROSE 5% 500 ML IV SCH (09:28)
[2020-07-26] MEDS ORDERED: VANC125C11 PO (13:16)
[2020-07-26] MEDS ORDERED: DOXY100C2 PO (13:45)
[2020-07-26 14:59] VITALS: BP 103/57
--- NOTE | 2020-07-26 15:04 | NUR ---
dc folly catheter per md orders
--- NOTE | 2020-07-26 15:05 | NUR ---
at evening real sanchez notified for pt leaving [phone]
--- NOTE | 2020-07-26 16:09 | NUR ---
dc orders received noted and carried out,dc instruction and education given to the pt and his daughter ,peewee frey per md orders, pt daughter said she make the follow up appointment with his pcp and ortho dr ,pt left the facility via ambulances in stable condition
== END 2020-07-26 16:15 | disposition home health service (06) | DRG 853 ==
LOC: ER 18:48 → TELE3 23:55 → MEDSURG3 07-21 08:20
PROVIDERS: ADMIT Nurse Practitioner Acute Care; ATTEND Registered Nurse
PROC: 30233N1 Transfusion of Nonautologous Red Blood Cells into Peripheral Vein, Percutaneous Approach (ICD-10-PCS; principal; 2020-07-20)
PROC: 0J9L0ZZ Drainage of Right Upper Leg Subcutaneous Tissue and Fascia, Open Approach (ICD-10-PCS; 2020-07-23)
DX: A41.9 Sepsis, unspecified organism (principal); N17.0 Acute kidney failure with tubular necrosis; G93.41 Metabolic encephalopathy; I82.411 Acute embolism and thrombosis of right femoral vein; E44.0 Moderate protein-calorie malnutrition; D68.69 Other thrombophilia; E87.2 Acidosis; I82.431 Acute embolism and thrombosis of right popliteal vein; L03.115 Cellulitis of right lower limb; R65.20 Severe sepsis without septic shock; D64.9 Anemia, unspecified; H40.9 Unspecified glaucoma; I10 Essential (primary) hypertension; E87.5 Hyperkalemia; E88.09 Other disorders of plasma-protein metabolism, not elsewhere classified; G30.9 Alzheimer's disease, unspecified; F02.80 Dementia in other diseases classified elsewhere, unspecified severity, without behavioral disturbance, psychotic disturbance, mood disturbance, and anxiety; K44.9 Diaphragmatic hernia without obstruction or gangrene; K57.30 Diverticulosis of large intestine without perforation or abscess without bleeding; K59.00 Constipation, unspecified; Z79.01 Long term (current) use of anticoagulants; M62.81 Muscle weakness (generalized); G89.4 Chronic pain syndrome; N40.0 Benign prostatic hyperplasia without lower urinary tract symptoms; S70.11XA Contusion of right thigh, initial encounter; X58.XXXA Exposure to other specified factors, initial encounter; Y93.9 Activity, unspecified; Y92.89 Other specified places as the place of occurrence of the external cause; D17.79 Benign lipomatous neoplasm of other sites; Z96.651 Presence of right artificial knee joint; Z68.30 Body mass index [BMI] 30.0-30.9, adult; Z86.718 Personal history of other venous thrombosis and embolism
CPT/HCPCS: 36415; 70030-TC; 71045; 82378; 83550; 83605; 83690; 83735; 84100; 84153; 84443; 85018; 85025; 85730; 86850; 86900; 86901; 86920; 87040; 87070; 87075; 87086; 93005; A4649; A4663; A9150; G0378; J1100; J2405; J2543; J2710; J2765; J2916; J3010; J3370; J3480; J3490; J7030; J7040; J7050; J7060; J8540; P9016-BL; P9021; Q0163; Q9967